=== PATIENT | female | born 1975 | race Caucasian/White ===

== ENCOUNTER 2019-08-12 01:02 | Emergency (ER) | payer MEDICAID ==
[~2019-08-12] VITALS: Ht 157.5 cm; Wt 60.3 kg
[2019-08-12 02:12] VITALS: BP_SYST 110
[2019-08-12] MEDS ORDERED: NACL 0.9% 1,000 ML IV ONE (02:28)
[2019-08-12 03:20] LABS: BILIRUBIN,URINE NEGATIVE (NEGATIVE); BLOOD, URINE 3+ (NEGATIVE); COLOR,URINE YELLOW (YELLOW); GLUCOSE,URINE NEGATIVE (NEGATIVE); KETONES,URINE 2+ (NEGATIVE); LEUKOCYTE ESTERASE ,URINE 1+ (NEGATIVE); NITRITE, URINE NEGATIVE (NEGATIVE); PH,URINE 5.5 (5.0-8.0); PROTEIN URINE NEGATIVE (NEGATIVE); UROBILINOGEN,URINE 0.2 (0.2-1.0)
[2019-08-12 03:55] LABS: RBC,URINE 20-50 /HPF (0-3)
[2019-08-12 03:56] LABS: BACTERIA,URINE FEW /HPF (None Seen)
[2019-08-12 03:57] LABS: CLARITY/URINE SLIGHTLY HAZY (CLEAR)
[2019-08-12 04:04] LABS: BASOPHILS % (AUTO) 0.4 % (0.0-2.0); EOSINOPHILS % (AUTO) 0.2 % (0.0-4.0); HEMOGLOBIN 13.8 g/dL (12.0-16.0); LYMPHOCYTES % (AUTO) 15.1 % (20.5-51.5); MEAN CORPUSCULAR HEMOGLOBIN 31 pg (27-31); MEAN CORPUSCULAR HGB CONC 33 % (32-36); MEAN CORPUSCULAR VOLUME 96 fL (79.0-98.0); MONOCYTES # (AUTO) 0.8 K/uL (0.0-1.0); MONOCYTES % (AUTO) 6.1 % (1.7-9.3); NEUTROPHILS # (AUTO) 10.3 K/uL (1.8-7.7); NEUTROPHILS % (AUTO) 78.2 % (40.0-70.0); PLATELET COUNT (AUTO) 280 K/uL (130-430); RED CELL DISTRIBUTION WIDTH 12.9 % (9.0-15.0); WHITE BLOOD COUNT (AUTO) 13.1 K/uL (4.8-10.8)
[2019-08-12 04:12] LABS: CALCIUM 9.4 mg/dL (8.4-11.0); CREATININE 0.58 mg/dL (0.55-1.30); POTASSIUM 3.5 mmol/L (3.5-5.1)
[2019-08-12 04:36] VITALS: BP_SYST 110
[2019-08-12 04:40] LABS: ALBUMIN 4.3 g/dL (3.4-4.8); TOTAL BILIRUBIN 1.2 mg/dL (0.0-1.0)
== END 2019-08-12 04:36 | disposition home or self-care (01) ==
LOC: SED 01:02
DX: O20.9 Hemorrhage in early pregnancy, unspecified (principal); O23.41 Unspecified infection of urinary tract in pregnancy, first trimester; Z3A.01 Less than 8 weeks gestation of pregnancy; Z88.2 Allergy status to sulfonamides
CPT/HCPCS: 36415; 76801; 76817; 80053; 81000; 81025; 84702; 85025; 86901; 87086; 99284; J7030

== ENCOUNTER 2019-09-16 08:04 | Emergency (ER) | payer MEDICAID ==
[~2019-09-16] VITALS: Ht 160 cm; Wt 59.0 kg
[2019-09-16 08:07] VITALS: BP_SYST 120
--- NOTE | 2019-09-16 08:32 | NUR ---
Patient to ER bed 7 to gown for evaluation. Side rails up. Report given to QUAN Lee.
--- NOTE | 2019-09-16 08:40 | NUR ---
ER Dr. Momin at bedside examining patient.
--- NOTE | 2019-09-16 08:50 | NUR ---
pt arrives from home w/ c/o vaginal spotting. pt states that she had a miscarriage one week ago.
[2019-09-16] MEDS ORDERED: fentaNYL CITRATE/PF 100 MCG/2 ML AMP IVP ONE (09:00)
--- NOTE | 2019-09-16 09:00 | NUR ---
# 20 gauge angiocath placed to RAC. Use of asceptic technique. Opsite placed over site. Blood return noted. Blood for lab drawn from site. Flushed with 10 cc of normal saline. No evidence of infiltration noted. Patient tolerated well.
--- NOTE | 2019-09-16 09:14 | NUR ---
medicated the pt w/ Fentanyl per MD order. Will reassess.
[2019-09-16 09:41] LABS: BASOPHILS % (AUTO) 0.3 % (0.0-2.0); EOSINOPHILS % (AUTO) 0.3 % (0.0-4.0); HEMATOCRIT 36.4 % (36-48); HEMOGLOBIN 12.1 g/dL (12.0-16.0); LYMPHOCYTES # (AUTO) 1.6 K/uL (1.0-5.5); LYMPHOCYTES % (AUTO) 11.7 % (20.5-51.5); MEAN CORPUSCULAR HEMOGLOBIN 32 pg (27-31); MEAN CORPUSCULAR HGB CONC 33 % (32-36); MEAN CORPUSCULAR VOLUME 96 fL (79.0-98.0); MONOCYTES # (AUTO) 0.6 K/uL (0.0-1.0); MONOCYTES % (AUTO) 4.2 % (1.7-9.3); NEUTROPHILS # (AUTO) 11.4 K/uL (1.8-7.7); NEUTROPHILS % (AUTO) 83.5 % (40.0-70.0); PLATELET COUNT (AUTO) 268 K/uL (130-430); RED CELL DISTRIBUTION WIDTH 12.9 % (9.0-15.0); WHITE BLOOD COUNT (AUTO) 13.7 K/uL (4.8-10.8)
--- NOTE | 2019-09-16 09:45 | NUR ---
Patient transported to US via gurney , accompanied by US tech.
--- NOTE | 2019-09-16 10:30 | NUR ---
Dr. Momin at the bedside performing a pelvic exam.
--- NOTE | 2019-09-16 10:50 | NUR ---
Patient given written and verbal discharge instructions and verbalizes understanding. ER MD discussed with patient the results and treatment provided. Patient in stable condition. ID arm band removed. IV catheter removed intact and dressing applied, no active bleeding. Rx of ibuprofen, tramadol, cyotec given. Patient educated on pain management and to follow up with PMD. Pain Scale []. Opportunity for questions provided and answered. Medication side effect fact sheet provided. Addendum: 09/16/19 at 1052 by [email or web address] Painscale 0/10.
[2019-09-16 10:53] VITALS: BP_SYST 124
== END 2019-09-16 10:53 | disposition home or self-care (01) ==
LOC: SED 08:04
DX: O03.9 Complete or unspecified spontaneous abortion without complication (principal); Z3A.01 Less than 8 weeks gestation of pregnancy; Z88.2 Allergy status to sulfonamides
CPT/HCPCS: 36415; 76801; 76817; 84702; 85025; 86900; 86901; 96374; 99284; J3010

== ENCOUNTER 2020-08-10 10:33 | Emergency (ER) | payer MEDICAID ==
[~2020-08-10] VITALS: Ht 154.9 cm; Wt 58.1 kg
[2020-08-10 10:55] VITALS: BP_SYST 100
[2020-08-10 11:29] LABS: BASOPHILS # (AUTO) 0.1 K/uL (0.0-0.2); BASOPHILS % (AUTO) 0.4 % (0.0-2.0); EOSINOPHILS % (AUTO) 0.2 % (0.0-4.0); HEMATOCRIT 37.2 % (36-48); HEMOGLOBIN 12.6 g/dL (12.0-16.0); LYMPHOCYTES # (AUTO) 1.9 K/uL (1.0-5.5); LYMPHOCYTES % (AUTO) 12.3 % (20.5-51.5); MEAN CORPUSCULAR HEMOGLOBIN 32 pg (27-31); MEAN CORPUSCULAR HGB CONC 34 % (32-36); MEAN CORPUSCULAR VOLUME 95 fL (79.0-98.0); MONOCYTES # (AUTO) 0.6 K/uL (0.0-1.0); MONOCYTES % (AUTO) 4.1 % (1.7-9.3); PLATELET COUNT (AUTO) 268 K/uL (130-430); RED CELL DISTRIBUTION WIDTH 12.6 % (9.0-15.0); WHITE BLOOD COUNT (AUTO) 15.7 K/uL (4.8-10.8)
[2020-08-10 12:10] VITALS: BP_SYST 100
== END 2020-08-10 12:10 | disposition home or self-care (01) ==
LOC: SED 10:33
DX: O03.9 Complete or unspecified spontaneous abortion without complication (principal); Z88.2 Allergy status to sulfonamides; Z3A.01 Less than 8 weeks gestation of pregnancy
CPT/HCPCS: 36415; 76801; 76817; 81025; 85025; 99284

== ENCOUNTER 2022-03-24 19:14 | Emergency (ER) | payer BC, MEDICAID ==
[~2022-03-24] VITALS: Ht 157.5 cm; Wt 74.8 kg
[2022-03-24 19:32] VITALS: BP_SYST 135
== END 2022-03-24 20:52 | disposition left against medical advice (07) ==
LOC: SED 19:14
DX: R51.9 Headache, unspecified (principal); Z53.21 Procedure and treatment not carried out due to patient leaving prior to being seen by health care provider

== ENCOUNTER 2023-11-20 19:54 | Emergency (ER) | payer BC, MEDICAID ==
[~2023-11-20] VITALS: Ht 157.5 cm; Wt 68.0 kg
[2023-11-20 20:10] VITALS: BP_SYST 141; PULSE 75; RESP 20; TEMP 98.2; O2SAT 98
[2023-11-20] MEDS ORDERED: AMOX250C PO (21:03)
[2023-11-20] MEDS ORDERED: ACET-2634 PO (21:03)
[2023-11-20] MEDS: cefTRIAXone 1 GM VIAL IM ONE (21:35)
[2023-11-20 21:37] VITALS: BP_SYST 141; PULSE 75; RESP 20; TEMP 98.2; O2SAT 98
== END 2023-11-20 21:37 | disposition home or self-care (01) ==
LOC: SED 19:54
DX: J02.9 Acute pharyngitis, unspecified (principal); Z88.2 Allergy status to sulfonamides; Z79.899 Other long term (current) drug therapy
CPT/HCPCS: 99283; 96372; J0696

== ENCOUNTER 2023-11-21 01:43 | Emergency (ER) | payer MEDICAID ==
[~2023-11-21] VITALS: Ht 157.5 cm; Wt 68.0 kg
[~2023-11-21 01:43] MED LIST: ACET-2634 PO; AMOX250C PO
[2023-11-21 01:59] VITALS: BP_SYST 123; PULSE 80; RESP 18; TEMP 99.6; O2SAT 99
[2023-11-21] MEDS: DEXAMETHASONE SOD PHOSPHATE 4 MG/ML VIAL IM ONE (02:47)
[2023-11-21] MEDS ORDERED: DEXAMETHASONE SOD PHOSPHATE 4 MG/ML VIAL ONE (02:53)
[2023-11-21] MEDS: ACETAMINOPHEN 500 MG TABLET PO ONE (03:20)
[2023-11-21] MEDS: KETOROLAC TROMETHAMINE 30 MG VIAL IM ONE (03:20)
[2023-11-21 04:12] LABS: COVID19 ANTIGEN SOFIA FIA NEGATIVE (NEGATIVE); INFLUENZA TYPE A Negative (NEGATIVE); INFLUENZA TYPE B NEGATIVE (NEGATIVE)
[2023-11-21 04:51] VITALS: PULSE 80; RESP 18; TEMP 99.6; O2SAT 99
[2023-11-21 04:53] VITALS: BP_SYST 115
== END 2023-11-21 04:53 | disposition home or self-care (01) ==
LOC: SED 01:43
DX: J02.9 Acute pharyngitis, unspecified (principal); R09.81 Nasal congestion; Z88.2 Allergy status to sulfonamides; Z88.8 Allergy status to other drugs, medicaments and biological substances; Z20.822 Contact with and (suspected) exposure to COVID-19
CPT/HCPCS: 99284; 87426; 36415; 96372; 87804 ×2; J1100; J1885